=== PATIENT | female | born 1955 | race Caucasian/White ===

== ENCOUNTER → 2023-10-01 15:48 | Outpatient (REF) | payer MEDICARE, OTHER, SELFPAY | LOC: DHCBS MAIN 15:48 | PROVIDERS: ATTENDING PHYSICIAN Internal Medicine Cardiovascular Disease; FAMILY PHYSICIAN Family Medicine | DX: I48.0 Paroxysmal atrial fibrillation (principal) | CPT/HCPCS: 93306 ==

== ENCOUNTER → 2023-11-16 17:43 | Outpatient (REF) | payer MEDICARE, OTHER, SELFPAY | LOC: MRI 17:43 | PROVIDERS: ATTENDING PHYSICIAN Otolaryngology; FAMILY PHYSICIAN Family Medicine | DX: R42 Dizziness and giddiness (principal) | CPT/HCPCS: 70553; A9575 ==

== ENCOUNTER → 2024-06-07 13:20 | Outpatient (REF) | payer MEDICARE, OTHER, SELFPAY | LOC: HWRAD 13:20 | PROVIDERS: ATTENDING PHYSICIAN Internal Medicine Cardiovascular Disease; FAMILY PHYSICIAN Family Medicine | DX: I77.819 Aortic ectasia, unspecified site (principal) | CPT/HCPCS: 71250 ==

== ENCOUNTER 2024-10-25 05:51 | Day surgery (SDC) | payer MEDICARE, OTHER, SELFPAY ==
[2024-10-09 11:09] VITALS: BMI 24.3
[2024-10-25] VITALS (11 sets, daily range): BP systolic 110–130; BP diastolic 59–76
--- NOTE | 2024-10-25 07:54 | ITS.CL.ABL ---
Product Support Engineer - Ablation
Ablation
Procedure Report:
Primary Supervisor Plating And Point Assembly: Marciano Calderon MD
Procedure Date: 10/25/2024
Patient History:
Patient is a pleasant 68-year-old female with a past medical history significant for bicuspid aortic valve, dilated ascending aorta, dyslipidemia, paroxysmal symptomatic atrial fibrillation.
See H&P for complete details.
Indication:
Symptomatic paroxysmal atrial fibrillation
Arrhythmia Specific History:
Prior Medical Therapies for Rate and Rhythm Control:
X Beta-nathanael
X Calcium channel-nathanael
[ ] Amiodarone
[ ] Dronederone
[ ] Sotalol
[ ] Flecainide
[ ] Dofetilide
[ ] Options limited by bradycardia
[ ] Options limited by comorbid renal disease
Prior Procedural Therapies for AF/AFL:
[ ] Cardioversion
[ ] Pulmonary Vein Isolation
[ ] Posterior Wall Isolation
[ ] Additional lines (Specify)
[ ] Surgical Olivera-MAZE or PVI (Specify)
Procedure Performed:
X AF ablation procedure (26139) -- includes LA/CS pacing, trans-septal, 3D mapping, + ICE
[ ] +IV drug (18919)
[ ] +Other Arrhythmia (07835)
X +Other AF Line/ablation (70265) - posterior wall isolation (floor, roof, wall)
Risks and expected recovery has been explained in detail. Alternative options have been explored, and in a shared-decision making fashion we have decided that this was the most appropriate procedure.
Method
NPO status confirmed. Grounding pad applied. Defibrillator pads applied. Continuous surface ECG, pulse oximetry, and blood pressure were monitored. Procedure was performed under general anesthesia, with anesthesia services.
Both groins were clipped, prepped with Chloraprep, and draped in sterile fashion. Time out was called. Local anesthesia administered with bupivacaine. The right femoral vein was accessed for catheter placement, using ultrasound guidance (images
saved to record), micro-puncture needle/wire, and modified seldinger technique. 3 sheaths were placed. The following catheters were used:
[ ] Tacticath SE (D/F Curve) ablation catheter
X Viewflex 9Fr ICE catheter
X Inquiry decapolar 6Fr diagnostic catheter
[ ] CRD Hex 6Fr
[ ] Arctic Front Advance Cryoballoon ([ ]28mm[ ]23mm)
[ ] Achieve Advance mapping catheter ([ ]15mm[ ]20mm)
X FlexCath Contour 10 Fr with PulseSelect PFA Catheter
X Advisor HD Grid Mapping Catheter, SE
[ ] Acuson AcuNav 8 Fr ICE catheter
[ ]Other: [ ]
Intracardiac ultrasound (ICE) was carefully advanced into the right atrium to guide sheath placement over a J-wire, catheter placement, guide trans-septal puncture, identify potential complications, identify anatomic structures and ensure proper
contact between ablation catheter and tissue.
Heparin was given prior to trans-septal puncture. Heparin was given to achieve and maintain a target ACT of 300-400 seconds throughout the procedure.
Trans-septal access was performed under ICE guidance. The trans-septal puncture was performed with a SafeSept wire through a Brockenbrough needle assembly through the steerable sheath. The wire was visualized as it entered the LSPV and system
advanced under ICE guidance and fluoroscopy into the LA. The Brockenbrough needle assembly, SafeSept wire and sheath dilator were removed under negative pressure. LA pressure was measured and recorded.
ICE and 3D mapping was performed to identify relevant cardiac structures. A careful 3D map was created to assess for regions of low-voltage and abnormal electrogram signals using HD grid mapping catheter and PulseSelect catheter. Additional mapping
was performed as outlined below.
Prior to ablation, glycopyrrolate was provided. PulseSelect catheter was advanced over J-wire to the ostium of each vein. Pulmonary vein isolation was performed with ostial and antral lesions in a circumferential manner. Contact was visualized via
EAM, ICE, fluoroscopy, and EGM signals. Due to the small size of the atrium and relatively narrow posterior wall, attempt was made for PVI only however due to close proximity of left and right sided lesions and concern for creating substrate for
additional arrhythmia, posterior wall isolation was performed to ensure appropriate management of AF. Posterior wall isolation was performed by anchoring the J-wire within the pulmonary vein and placing the PulseSelect catheter in contact with the
posterior wall as visualized by aforementioned methods. Following completion of ablation lesions, a post-ablation voltage/activation map was performed in sinus rhythm. Entrance and exit block were confirmed for each vein and the posterior wall.
Catheter and sheath were removed from the left atrium and post-ablation intracardiac echo evaluation was consistent with pre-ablation with no changes and no pericardial effusion and there is no left atrial thrombus or left ventricle thrombus seen.
Electrophysiology study was performed. Hemostasis was obtained with figure of 8 stitch for each groin and with manual pressure. Protamine was used for reversal.
Estimated Blood Loss
5 mL
Complications
None
Fluoroscopy: 1.6 minutes; 2.05 mGy; DAP 0.535
Baseline Intervals:
Rhythm: SR
IL: 156 ms
QRS: 81 ms
QT: 361 ms
QTc: 438 ms
Post-Procedure Intervals:
IL: 148 ms
QRS: 67 ms
QT: 380 ms
QTc: 453 ms
A-A: 705 ms
R-R: 705 ms
AVWB: 280 ms
AVNERP: 600/300 ms
Recommendations
- Bedrest with straight-leg precautions as ordered
- Anticipate same day discharge if patient meeting clinical metrics
- Resume home medications as indicated
- Ok to resume anticoagulation tonight if patient and groin sites stable
- PPI daily for 30 days
- Plan for follow-up in office as scheduled
Price Guy DO
Clinical Cardiac Risk Analyst
cc: Marciano Calderon MD; Foster Lobo MD
[2024-10-25 08:52] LABS: ACT-LR - POC 342 Seconds (116-155)
[2024-10-25 09:06] LABS: ACT-LR - POC 310 Seconds (116-155)
[2024-10-25 09:51] LABS: ACT-LR - POC 387 Seconds (116-155)
[2024-10-25 10:11] LABS: ACT-LR - POC 168 Seconds (116-155)
[2024-10-25] MEDS: ZOFRAN 4 MG IV (11:28)
[2024-10-25] MEDS: MAXALT MLT (ORALLY DISINTEGRATING) 10 MG PO (11:38)
[2024-10-25 14:34] LABS: ACT-LR - POC > 397 Seconds (116-155)
--- NOTE | 2024-10-25 15:14 | W.PN.UPDATE ---
Update Note
Progress Note Update
68 yo WF s/p PVI (same day). She denies cp, sob, voidig, did have mild migraine with aura treated with Maxalt, R fem site c/d/i no HT, soft, EKG SR. She will resume Eliquis tonight, continue metoprolol and will take PPI daily for next 30 days.
Activity restrictions reviewed. She will f/u Dr. Calderon in 3 mo. She is for d/c home after 330pm
== END 2024-10-25 15:30 | disposition home or self-care (01) ==
LOC: CATH 05:51
PROVIDERS: ATTENDING PHYSICIAN Internal Medicine Cardiovascular Disease; FAMILY PHYSICIAN Family Medicine; OTHER PHYSICIAN Internal Medicine Cardiovascular Disease
DX: I48.0 Paroxysmal atrial fibrillation (principal); E78.5 Hyperlipidemia, unspecified; Z79.899 Other long term (current) drug therapy; Z79.01 Long term (current) use of anticoagulants; F41.9 Anxiety disorder, unspecified; Q23.81 Bicuspid aortic valve; G43.909 Migraine, unspecified, not intractable, without status migrainosus; K21.9 Gastro-esophageal reflux disease without esophagitis; Z86.14 Personal history of Methicillin resistant Staphylococcus aureus infection; G47.33 Obstructive sleep apnea (adult) (pediatric)
CPT/HCPCS: C1732; C1894; C1769; C1733; C1766; 76937; 85347; 86900; 86901; 93005; 93656; 93657